=== PATIENT | male | born 1950 | race Caucasian/White ===

== ENCOUNTER → 2016-10-06 | Outpatient (CLI) | payer SELFPAY | LOC: CARD REHAB 13:30 | DX: J44.9 Chronic obstructive pulmonary disease, unspecified (principal) ==

== ENCOUNTER → 2021-12-13 | Outpatient (CLI) | payer OTHER | LOC: KOH-I 11:21 | DX: R27.0 Ataxia, unspecified (principal); H70.11 Chronic mastoiditis, right ear | CPT/HCPCS: 70551 ==